=== PATIENT | female | born 1975 ===

== ENCOUNTER 2017-06-30 02:48 | Emergency (ER) | payer OTHER ==
[2017-06-30 03:01] VITALS: RESP 18
[2017-06-30 03:18] LABS: URINE BILIRUBIN NEGATIVE (NEGATIVE); URINE BLOOD NEGATIVE (NEGATIVE); URINE COLOR Colorless (YELLOW); URINE GLUCOSE (UA) NORMAL (Normal); URINE KETONE NEGATIVE (NEGATIVE); URINE LEUKOCYTE ESTERASE NEG Leu/uL (Negative); URINE PROTEIN NEGATIVE (NEGATIVE); URINE UROBILINOGEN NORMAL mg/dL (0.2-1.0); WBC URINE < 1 /hpf (0-5)
[2017-06-30] MEDS ORDERED: cefTRIAXone (Rocephin) 250 mg Inj IM STA (04:22)
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
[2017-06-30 04:44] LABS: BASO % 0.8 % (0.0-2.0); EOS % 0.2 % (0.0-4.0); HEMATOCRIT 35.6 % (34.0-47.0); LYMPH # 0.8 K/uL (1.0-4.3); LYMPH % 13.6 % (20.0-40.0); MEAN CELL VOLUME 85.9 fL (81.0-99.0); MEAN CORPUSCULAR HEMOGLOBIN 27.9 pg (27.0-31.0); MEAN CORPUSCULAR HGB CONC 32.4 g/dL (33.0-37.0); MEAN PLATELET VOLUME 8.2 fL (7.2-11.7); MONO # 0.4 K/uL (0.0-0.8); MONO % 7.4 % (0.0-10.0); RED CELL DISTRIBUTION WIDTH 15.2 % (11.5-14.5); WHITE BLOOD COUNT 5.9 K/uL (4.8-10.8)
[2017-06-30 04:59] LABS: CHLORIDE 102 mmol/L (98-107); POTASSIUM 3.8 mmol/L (3.6-5.2); SODIUM 142 mmol/L (132-148)
[2017-06-30 05:01] LABS: ALB/GLOB RATIO 1.4 (1.0-2.1); AST/SGOT 27 U/L (14-36); BILIRUBIN,TOTAL 0.7 mg/dL (0.2-1.3); CARBON DIOXIDE 25 mmol/L (22-30); GFR AFRICAN-AMERICAN > 60
[2017-06-30 05:02] LABS: ALKALINE PHOSPHATASE 59 U/L (38-126); ALT/SGPT 24 U/L (9-52); BLOOD UREA NITROGEN 8 mg/dL (7-17); CALCIUM 9.2 mg/dl (8.6-10.4); GLUCOSE,RANDOM 85 mg/dL (65-105)
[2017-06-30 05:07] VITALS: BP 104/67; PULSE 75; TEMP 98
[2017-06-30 05:12] VITALS: O2SAT 100
== END 2017-06-30 05:05 | disposition home or self-care (01) ==
LOC: C.ER 02:48
DX: Z04.41 Encounter for examination and observation following alleged adult rape (principal)